=== PATIENT | female | born 1945 | race Two or more races ===

== ENCOUNTER 2018-11-21 07:13 | Outpatient (CLI) | payer OTHER | END 2018-11-21 07:16 | disposition home or self-care (01) | LOC: SONOGRAMA 07:13 | DX: E04.1 Nontoxic single thyroid nodule (principal) ==

== ENCOUNTER 2022-02-23 08:34 | Outpatient (CLI) | payer OTHER | END 2022-02-23 08:36 | disposition home or self-care (01) | LOC: SONOGRAMA 08:34 | PROVIDERS: ATTEND Pathology Anatomic Pathology & Clinical Pathology | DX: D34 Benign neoplasm of thyroid gland (principal); E06.3 Autoimmune thyroiditis; E04.1 Nontoxic single thyroid nodule ==